=== PATIENT | male | born 1950 | race Caucasian/White ===

== ENCOUNTER 2022-01-18 08:35 | Emergency (ER) | payer OTHER ==
[~2022-01-18] VITALS: Ht 182.9 cm; Wt 85.7 kg
== END 2022-01-18 12:56 | disposition home or self-care (01) ==
LOC: ED 08:35
DX: U07.1 COVID-19 (principal); Z88.5 Allergy status to narcotic agent; Z88.6 Allergy status to analgesic agent
CPT/HCPCS: 87502; 99283; C9803; U0003